=== PATIENT | male | born 2000 | race Two or more races ===

== ENCOUNTER 2020-11-08 03:35 | Emergency (ER) | payer OTHER ==
[~2020-11-08] VITALS: Ht 165.1 cm; Wt 68.0 kg
[2020-11-08] MEDS ORDERED: ONDANSETRON HCL/PF 4 MG/2 ML VIAL ONE (03:40)
[2020-11-08] MEDS ORDERED: MORPHINE SULFATE INJ 4 MG/ML DISP.SYRIN ONE (03:40)
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
--- NOTE | 2020-11-08 03:46 | NUR ---
called rad for ct
--- NOTE | 2020-11-08 03:53 | NUR ---
pt taken to ct
[2020-11-08 03:54] LABS: BASOPHILS # (AUTO) 0.1 K/uL (0.0-0.2); EOSINOPHILS % (AUTO) 1.3 % (0.0-6.0); HEMATOCRIT 42 % (39-51); HEMOGLOBIN 14.1 g/dL (13.5-17.5); LYMPHOCYTES # (AUTO) 4.1 K/uL (0.8-4.8); LYMPHOCYTES % (AUTO) 45.7 % (20.0-44.0); MEAN CORPUSCULAR HGB CONC 34 g/dl (31.0-36.0); MEAN CORPUSCULAR VOLUME 87 fL (80-96); MONOCYTES # (AUTO) 0.7 K/uL (0.1-1.30); MONOCYTES % (AUTO) 8.1 % (2.0-12.0); NEUTROPHILS # (AUTO) 3.9 K/uL (1.8-8.9); NEUTROPHILS % (AUTO) 43.9 % (43.0-81.0); PLATELET COUNT (AUTO) 385 K/uL (150-450); RED BLOOD CELL COUNT(AUTO) 4.86 MIL/uL (4.5-6.0); WHITE BLOOD COUNT (AUTO) 8.9 K/uL (4.3-11.0)
[2020-11-08] MEDS ORDERED: IOHEXOL-300 100 ML VIAL IV ONE (03:58)
[2020-11-08] MEDS ORDERED: IV NS 0.9% 250 ML IV ONE (03:58)
[2020-11-08] MEDS ORDERED: CT SWABBABLE VALVE TRANS SET 1 EA INFUS.SET MC ONE (03:59)
[2020-11-08] MEDS: IV NS 0.9% 1,000 ML BAG IV ONE (04:00)
[2020-11-08] MEDS: ONDANSETRON HCL/PF 4 MG/2 ML VIAL IVP ONE (04:00)
[2020-11-08] MEDS: MORPHINE SULFATE INJ 2 MG/ML DISP.SYRIN IV ONE (04:00)
[2020-11-08 04:09] LABS: BILIRUBIN,DIRECT 0.1 mg/dL (0.0-0.2); BILIRUBIN,TOTAL 0.4 mg/dL (0.2-1.0); CREATININE 1.1 mg/dL (0.6-1.3); POTASSIUM 3.2 mmol/L (3.5-5.1); TOTAL PROTEIN, SERUM 7.8 g/dL (6.4-8.2)
--- NOTE | 2020-11-08 04:22 | NUR ---
BACK FROM CT
--- NOTE | 2020-11-08 04:26 | NUR ---
[employer] AT BED SIDE
[2020-11-08] MEDS: TDAP [DIPH/PERTUSSIS/TET] 0.5 ML VIAL IM ONE (05:00)
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
--- NOTE | 2020-11-08 05:15 | NUR ---
CALLED [employer] [phone] TO TRANSFER PT TO [facility]
[2020-11-08 05:24] VITALS: BP 131/60
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
[2020-11-08] MEDS ORDERED: TDAP [DIPH/PERTUSSIS/TET] 0.5 ML VIAL IM ONE (05:38)
== END 2020-11-08 05:30 | disposition short-term general hospital (02) ==
LOC: ER 03:37 → EDBD 03:37 → ER 05:30
DX: S71.141A Puncture wound with foreign body, right thigh, initial encounter (principal); X95.9XXA Assault by unspecified firearm discharge, initial encounter; Y93.89 Activity, other specified; Y92.832 Beach as the place of occurrence of the external cause; Z20.822 Contact with and (suspected) exposure to COVID-19
CPT/HCPCS: 36415; 71045; 73701; 80048; 80076; 85025; 85730; 86850; 87426; 90471; 90715; 96361; 96374; 96375; 99291; C9803; J2270; J2405; J7030; J7050; Q9967

== ENCOUNTER 2020-11-09 21:57 | Emergency (ER) | payer OTHER ==
--- NOTE | 2020-11-09 22:47 | NUR ---
CALLED FOR TRIAGE , NO RESPONSE
--- NOTE | 2020-11-09 23:08 | NUR ---
CALLED FOR TRIAGE NO ANSWER
[2020-11-10] MEDS ORDERED: CEPH500C2 PO (10:43)
[2020-11-10] MEDS ORDERED: SULF1TAB48 PO (10:44)
[2020-11-10] MEDS ORDERED: HYDR-4275 PO (10:44)
[2020-11-10] MEDS ORDERED: HYDR-4303 PO ×2 (16:01→16:04)
== END 2020-11-09 23:39 | disposition left against medical advice (07) ==
LOC: ER 22:05
DX: Z53.21 Procedure and treatment not carried out due to patient leaving prior to being seen by health care provider (principal)

== ENCOUNTER 2020-11-10 10:28 | Emergency (ER) | payer OTHER ==
[~2020-11-10] VITALS: Ht 170.2 cm; Wt 76.2 kg
[2020-11-10 10:32] VITALS: BP 132/66
[2020-11-10] MEDS ORDERED: CEPH500C2 PO (10:43)
[2020-11-10] MEDS ORDERED: SULF1TAB48 PO (10:44)
[2020-11-10] MEDS ORDERED: HYDR-4275 PO (10:44)
--- NOTE | 2020-11-10 11:03 | NUR ---
INSTRUCTED PATIENT TO CALL [facility] FOR WOUND CARE NURSE. PATIENT VERBALIZED UNDERSTANDING.
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
[2020-11-10] MEDS ORDERED: HYDR-4303 PO ×2 (16:01→16:04)
== END 2020-11-10 11:03 | disposition home or self-care (01) ==
LOC: ER 10:28
DX: S71.131A Puncture wound without foreign body, right thigh, initial encounter (principal); W34.09XA Accidental discharge from other specified firearms, initial encounter; Y93.89 Activity, other specified; Y92.89 Other specified places as the place of occurrence of the external cause; Y99.8 Other external cause status

== ENCOUNTER 2020-11-14 12:16 | Emergency (ER) | payer OTHER ==
[~2020-11-14] VITALS: Ht 170.2 cm; Wt 76.2 kg
[~2020-11-14 12:16] MED LIST: CEPH500C2 PO; HYDR-4275 PO; HYDR-4303 PO; SULF1TAB48 PO
[2020-11-14 13:11] VITALS: BP 152/74
[2020-11-14] MEDS ORDERED: NAPR500T6 PO (13:18)
--- NOTE | 2020-11-14 13:30 | NUR ---
WOUND CARE DONE AND PROVIDED WITH WOUND CARE SUPPLIES.
--- NOTE | 2020-11-14 13:30 | NUR ---
Patient discharged to home in stable condition. Written and verbal after care instructions given. Patient verbalizes understanding of instruction. Pt ambulatory with a steady gait
== END 2020-11-14 13:31 | disposition home or self-care (01) ==
LOC: ER 12:16
DX: S71.131D Puncture wound without foreign body, right thigh, subsequent encounter (principal); W34.09XD Accidental discharge from other specified firearms, subsequent encounter